=== PATIENT | male | born 1990 | race Two or more races ===

== ENCOUNTER 2025-05-02 18:15 | Emergency (ER) | payer OTHER, SELFPAY ==
[~2025-05-02] VITALS: Ht 172.7 cm; Wt 109.9 kg
--- NOTE | 2025-05-02 18:51 | ED.PDOC ---
SOB-HPI HPI Comments HPI: Poor Historian. 34-year-old male presents to emergency department for evaluation of two month history of intermittent asthma exacerbation. He has been using his inhaler at home but he ran out today. Patient denies any other acute symptoms. Patient is not on any steroids. Denies any cough or fever. Patient noticed some exertional dyspnea today when he was working in the [employer]. Past Medical History: Asthma, hypertension Past Surgical History: Denies any Denies tobacco abuse. REVIEW OF SYSTEMS: CONSTITUTIONAL: Denies acute: fever, diaphoresis, chills, generalized weakness. HEAD: Denies acute: headache, photophobia Eyes: Denies acute: Double vision, vision loss, eye pain, eye discharge. EARS: Denies acute: tinnitus, hearing loss, ear discharge, ear pain, THROAT: Denies acute: sore throat, swelling, difficulty swallowing , pain with swallowing, change in voice. NECK: Denies acute: neck pain, neck swelling, stiff neck. HEART: Denies acute : chest pain, palpitations, LUNGS: Denies acute: wheezing, cough, hemoptysis ABDOMEN: Denies acute: abdominal pain, Nausea, Vomiting, diarrhea, melena , hematemesis, hematochezia SKIN: Denies acute: rash, redness, lesions, itchiness. EXTREMITIES: Denies acute: calf pain, numbness, tingling, weakness, denies pain in extremity. Denies acute: Low back pain. Neuro: Denies acute: focal neurological deficit, motor or sensory focal neurological deficit, tremors, seizure like activity, confusion, dizziness, change in mental status, loss of bowel or bladder function, cauda equina like symptoms. : Denies acute: dysuria, hematuria, flank pain, increase in urinary frequency. PSYCH: Denies acute: hallucination, suicidal ideation, homicidal ideation. PHYSICAL EXAM: General: -----no---acute distress, awake and alert. Head: normocephalic, atraumatic. Neck: supple, trachea is midline, no swelling. Throat: Normal phonation. Eyes:, no erythema, no purulent discharge, no proptosis, no icterus. Heart: regular rate, regular rhythm, no significant murmur appreciated. Lungs: no apparent respiratory distress, Able to speak in full sentences. No wheezing, no rhonchi, no crackles. No stridors Clear to auscultation bilaterally. Abdomen: non tender to palpation, non distended, soft, no guarding, no rebound, + bowel sounds. Neuro: Awake, Alert, oriented to name, self, situation, follows commands GCS=15. Speech is normal. Skin: no petechia, no purpura, no cyanosis, non-pale, not jaundice. Lower extremities: --no - Pitting edema no deformity, no focal swelling, no calf TTP. Makes eye contact. moves all four extremities. Face: no apparent facial droop. Ambulating in the ED independently. ED COURSE: DISCLAIMER: This medical document was created using an electronic medical record system with voice recognition software and computerized dictation system. Although this document has been carefully reviewed, there might still be some phonetic and typographical errors. Occasional wrong-word or "sound-alike" substitutions may have occurred due to the inherent limitations of voice recognition software. These areas are purely typographical due to imperfections of the software programs and do not reflect any compromise in the patient's medical care. Please read the chart carefully and recognize, using context, where these substitutions have occurred. Chief Complaint: Asthma Time Seen by MD: 18:30 Information Source: Patient Mode of Arrival: Ambulatory Was a procedure done? Was a procedure done?: No Differential Dx Differential Diagnosis: Other (DDx include ACS, unstable angina, anxiety, PE, pneumothroax, neoplasm, cardiac ischemia, COPD, asthma, CHF, pleural effusion, tobacco abuse, pneumonia, hypoxia, hypercapnia, anemia., infection/sepsis., pulmonary edema. Asthma, Cardiac tamponade, infection.) X-Ray, Labs, Meds, VS Vital Signs Date Time Temp Pulse Resp B/P (MAP) Pulse Ox O2 Delivery O2 Flow Rate FiO2 05/02/25 21:03 98.4 95 16 146/98 (114) 96 98.4 05/02/25 20:09 16 96 Room Air* 0 21 05/02/25 19:42 98.3 94 14 120/87 (98) 97 98.3 05/02/25 19:03 18 96 Room Air* 0 21 05/02/25 18:17 98.3 106 16 155/94 96 98.3 Current Medications Medications (Trade) Dose Ordered Sig/Anat Route Start Time Stop Time Status Last Admin Ipratropium [place] (Atrovent Medneb) 1 mg ONCE ONCE NEB 05/02/25 19:00 05/02/25 19:01 DC 05/02/25 19:03 Methylprednisolone Sodium Succinate (Solu Medrol) 125 mg ONCE ONCE IM 05/02/25 19:00 05/02/25 19:01 DC 05/02/25 20:08 [place] [address] Ph: [phone] DIAGNOSTIC IMAGING Diagnostic Imaging Report : [id number] Signed PATIENT: UMAIR BURGESS ACCT: [id number] UNIT: [id number] : 1990 LOC: ER ROOM / BED: / AGE / SEX: 34 / M ADM STATUS: REG ER SERVICE 45 ORDERING PHYSICIAN: NANCY ROTH DO PROCEDURE(s): CXRP - CHEST PORTABLE REASON: ASTHMA, SOB ORDER NUMBER(s): [id number], ACCESSION NUMBER(s): [id number] CHEST RADIOGRAPH Indication: ASTHMA, SOB Technique: Single frontal view of the chest was obtained Comparison: No prior chest x-rays available for comparison. FINDINGS: Lines and Tubes: None Lungs: No focal consolidation. Pleura: No effusion. No pneumothorax. Cardiomediastinal contours: Unremarkable Bones: No acute osseous abnormality. IMPRESSION: 1. No acute cardiopulmonary disease. ATED BY: SANFORD TORRES Jr., DO DICTATED DATE/TIME: 05/02/251909 SIGNED BY: SANFORD TORRES Jr., DO SIGNED DATE/TIME: 05/02/251909 CC: Time of 1ST Reevaluation: 19:00 Reevaluation 1ST: Unchanged Patient Education/Counseling: Diagnosis, Treatment Family Education/Counseling: No Family Present Comments MDM: patient presented with the above HPI.--shortness of breath asthma----workup was initiated. patient was found with the above mentioned diagnosis. the following medications were ordered: please refer to order lists of meds and tests obtained by myself Dr. Roth. Patient ED course and VS have been stabilized. Patient has been reassessed in the ED and remained in a stable condition. Pertinent incidental findings were discussed with the patient and/or family. Patient/family voices understanding and is agreeable with plan. Patient has been observed in the ED adequate length of time to insure improvemen t/stability. Escalation of care considered: Consideration of escalation to observation or admission Patient was given DuoNeb treatment and Solu-Medrol. Patient was given refill on his medications. Patient was DISCHARGED home in a stable condition. All the reports of any imaging studies that were ordered by myself were reviewed by myself. SEPSIS Sepsis Screen Date sepsis recognized/suspect: May 02, 2025 Time Sepsis recognized/suspect: 1819 Recent Procedure: No On Antibiotic Therapy: No Respiratory Rate >20: No Heart Rate >90: Yes Temp<36 C (96.8 F) or >38.3 C: No SBP <90 or MAP <65 mmHG: No New Acute Mental Status Change: No Is the patient on CPAP, BIPAP,: No Physician Orders General Milling Superintendent (05/02/25 ) Chest Portable (05/02/25 18:46) Vital Signs Date Time Temp Pulse Resp B/P (MAP) Pulse Ox O2 Delivery O2 Flow Rate FiO2 05/02/25 21:03 98.4 95 16 146/98 (114) 96 98.4 05/02/25 20:09 16 96 Room Air* 0 21 05/02/25 19:42 98.3 94 14 120/87 (98) 97 98.3 05/02/25 19:03 18 96 Room Air* 0 21 05/02/25 18:17 98.3 106 16 155/94 96 98.3 Medications Medications Dose Ordered Sig/Anat Route Start Time Stop Time Status Last Admin Dose Admin Ipratropium [place] 1 mg ONCE ONCE NEB 05/02/25 19:00 05/02/25 19:01 DC 05/02/25 19:03 Methylprednisolone Sodium Succinate 125 mg ONCE ONCE IM 05/02/25 19:00 05/02/25 19:01 DC 05/02/25 20:08 Departure 1 Departure Time of Disposition: 20:18 Impression: Primary Impression: Acute asthma Disposition: HOME / SELF CARE / HOMELESS Condition: Stable Additional Instructions: Additional instructions: Please read all instructions provided in this packet carefully. You MUST follow-up with your primary care/family doctor in 1 to 2 days. If you are unable to see your primary care/family doctor, please return to our emergency room for re-assessment and re-evaluation in 1 to 2 days. Return to the emergency room here in our facility or to the nearest ER [facility] if your symptoms change or worsen. CONSULTATIONS: you MUST Follow-up for consultation as soon as possible with: pulmonology in 1-2 days. Please call for appointment. You MUST call the consultants office yourself to make an appointment. You may need to arrange that through your insurance and/or your primary/family doctor. If you are unable to see the rewards consultant in 1 to 2 days, you must return to our emergency room (or any other ER of your choice) for re-assessment and re- evaluation. Adequate fluid hydration. Although you have been discharged from the Emergency Department, this does not mean that you have a "clean bill of health". No definitive diagnosis for your symptoms has been made today. It is possible that you are in the process of developing a serious illness. This is why you must return to the ED without fail if any new or worsening symptoms develop. e-Prescriptions Prednisone (Prednisone) 20 Mg Tab 40 MG PO DAILY for 5 Days, #10 TAB Prov: NANCY ROTH DO 05/02/25 Albuterol Sulfate (Albuterol Sulfate Hfa) 108 Mcg/Act Aer 108 MCG IN Q4HPRN PRN for 7 Days, #1 AER Prov: NANCY ROTH DO 05/02/25 Discharged With: Self Critical Care Note Critical Care Time?: No Stability Stability form required: No Heart Score Heart Score: Heart Score Response (Comments) Value History Slightly Suspicious 0 EKG Normal 0 Age <45 0 Risk Factors 1 or 2 risk factors 1 Troponin N/A 0 Total 1 I personally scribed for NANCY ROTH DO ([email or web address]) on 05/02/25 at 18:51. Electronically submitted by Ramez Somers ([email or web address]). I personally scribed for NANCY ROTH DO ([email or web address]) on 05/02/25 at 21:03. Electronically submitted by Ramez Somers ([email or web address]). NANCY ROTH DO May 02, 2025 18:51
[2025-05-02] MEDS: IPRATROPIUM BROM 0.5 MG/2.5ML INH SOL NEB ONE (19:03)
--- NOTE | 2025-05-02 19:13 | DVH ---
CHEST RADIOGRAPH Indication: ASTHMA, SOB Technique: Single frontal view of the chest was obtained Comparison: No prior chest x-rays available for comparison. FINDINGS: Lines and Tubes: None Lungs: No focal consolidation. Pleura: No effusion. No pneumothorax. Cardiomediastinal contours: Unremarkable Bones: No acute osseous abnormality. IMPRESSION: 1. No acute cardiopulmonary disease.
[2025-05-02] MEDS: methylPREDNISolone SOD SUCC 125 MG/2 ML VL IM ONE (20:08)
[2025-05-02 20:09] VITALS: RESP 16; O2SAT 96
[2025-05-02] MEDS ORDERED: ALBU108A5 IN (20:19)
[2025-05-02] MEDS ORDERED: PRED20TA2 PO (20:19)
[2025-05-02 21:03] VITALS: BP 146/98; PULSE 95; RESP 16; TEMP 98.4; O2SAT 96
== END 2025-05-02 21:04 | disposition home or self-care (01) ==
LOC: ER 18:20
DX: J45.901 Unspecified asthma with (acute) exacerbation (principal); I10 Essential (primary) hypertension
CPT/HCPCS: 71045; 94640; 96372; 99285; J2919